=== PATIENT | female | born 2000 | race Caucasian/White ===

== ENCOUNTER 2023-05-07 07:58 | Emergency (ER) | payer OTHER ==
[2023-05-07 08:25] VITALS: BP 118/59; O2SAT 96
--- NOTE | 2023-05-07 08:53 | ED Physician Documentation ---
PD HPI FEMALE - Stated complaint Stated Complaint: - Chief complaint Chief Complaint: Abd Pain - History obtained from History obtained from: Patient - History of Present Illness Timing - onset: How many days ago (2) Timing - duration: Days (2) Timing - details: Gradual onset, Still present Associated symptoms: Vaginal pain, Vaginal discharge, Other (with labial irritation.). No: Abdominal pain, Back pain, Vaginal bleeding, Genital sore/lesion Contributing factors: Sexually active. No: , Exposed to STD Similar symptoms before: Diagnosis (feels similar to yeast infections in the past, per pt.) Review of Systems Constitutional: denies: Fever, Chills : reports: Discharge. 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 : None HEENT: None Psych: None Musculoskeletal: None Derm: None - Past Surgical History Past Surgical History: Yes General: Cholecystectomy - Present Medications Home Medications: Ambulatory Orders Medication Instructions Recorded Confirmed Fluconazole [Diflucan] 100 mg PO Q3D #3 tablet 05/07/23 Ibuprofen 1 tab PO PRN PRN 05/07/23 05/07/23 Miconazole Supp [Monistat 3] 200 mg VG DAILY 4 Days #4 supp 05/07/23 - Allergies Allergies/Adverse Reactions: Allergies Allergy/AdvReac Type Severity Reaction Status Date / Time No Known Drug Allergies Allergy Verified 05/07/23 08:05 - Social History Does the pt smoke?: No Smoking Status: Never smoker Does the pt drink ETOH?: Yes ETOH Use: Liquor Does the pt have substance abuse?: No - Immunizations Immunizations are current?: Yes - POLST Patient has POLST: No PD ED PE NORMAL - Vitals Vital signs reviewed: Yes - General General: Alert and oriented X 3, Well developed/nourished - Derm Derm: Normal color, Warm and dry - Neuro Neuro: Alert and oriented X 3, No motor deficit, Normal speech Results - Vitals Vitals: Vital Signs - 24 hr 05/07/23 08:05 Temperature 37.1 C Heart Rate 58 L Respiratory 12 Rate Blood Pressure 118/59 L O2 Saturation 96 Oxygen O2 Source Room air - Labs Labs: Laboratory Tests 05/07/23 05/07/23 09:50 09:50 C. glabrata (PCR) NEGATIVE C. krusei (PCR) NEGATIVE Taryn species DNA POSITIVE A Chlam trachomat DNA PCR NEGATIVE N.gonorrhoeae DNA (PCR) NEGATIVE T. vaginalis (PCR) NEGATIVE TNP Bact Vaginosis (PCR) NEGATIVE PD Medical Decision Making - ED course Complexity details: reviewed results (subsequent eval of vaginal testing later in day showed just the yeast. I had told pt we would call if other positives, so not needing to be notified, but I can call tomorrow to close the loop on test results. ), considered differential (has symptoms c/w yeast vaginitis. Is sexually active. Shared discussion is to test for BV and STI with swab testing avginal. ), d/w patient Departure - Departure Disposition: 01 Home, Self Care Clinical Impression: Vaginitis Qualifiers: Chronicity: acute Qualified Code(s): N76.0 - Acute vaginitis Condition: Stable Record reviewed to determine appropriate education?: Yes Instructions: ED Vaginal Infec Fungal Taryn [facility] Prescriptions: Fluconazole [Diflucan] 100 mg PO Q3D #3 tablet Miconazole Supp [Monistat 3] 200 mg VG DAILY 4 Days #4 supp Comments: We can treat as a yeast infection for now. The vaginal swab test for other infections such as bacterial vaginitis will result later today or tomorrow. Will call if any else is positive that would need additional treatment. You can also look up your results on the patient portal lab results. Oral antifungal medication is typically effective for this. We gave you a dose here and you can repeat it in 2 or 3 days. I prescribed a couple of extra tablets to have on hand for next occurrence since this seems episodic. If it feels familiar then can treat it in the future. Sometimes even a single dose will do early. 2 help with the symptoms more promptly on the current episode, you can do intravaginal treatment for 1 to 3 days as well. I gave a note for off duty today if you need to. I sent your prescriptions to the [email or web address] pharmacy. Forms: PCP List, Activity restrictions Discharge Date/Time: 05/07/23 10:04
[2023-05-07] MEDS ORDERED: FLUCONAZOLE 100 MG TABLET PO STA (09:37)
[2023-05-07 12:34] LABS: CHLAMYDIA TRACHOMATIS DNA NEGATIVE (NEGATIVE); NEISSERIA GONORRHOEAE DNA NEGATIVE (NEGATIVE)
[2023-05-07 12:37] LABS: BACTERIAL VAGINOSIS DNA NEGATIVE (NEGATIVE); CANDIDA GLABRATA DNA NEGATIVE (NEGATIVE); CANDIDA GROUP DNA POSITIVE (NEGATIVE); CANDIDA KRUSEI DNA NEGATIVE (NEGATIVE); TRICHOMONAS VAGINALIS DNA NEGATIVE (NEGATIVE)
== END 2023-05-07 10:04 | disposition home or self-care (01) ==
LOC: ED 07:58
DX: N76.0 Acute vaginitis (principal)
CPT/HCPCS: 81514; 87491; 87591; 99283; A9270; 87661